=== PATIENT | female | born 2005 | race Caucasian/White ===

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

== ENCOUNTER 2024-01-02 10:02 | Emergency (ER) | payer BC, OTHER ==
[2024-01-02 10:05] VITALS: TEMP 98.8
[2024-01-02 10:37] LABS: Basophils % (A) 0 %; Eosinophils % (A) 0 %; HCT 34.2 % (34.0-46.0); HGB 11.6 gm/dL (11.4-16.0); Lymphocytes # (A) 0.8 k/uL (1.0-4.8); Lymphocytes % (A) 6 %; MCH 28.8 pg (25.0-35.0); MCV 84.7 fL (80.0-100.0); Mean Platelet Volume 7.8; Monocytes % (A) 8 %; Neutrophils # (A) 10.2 k/uL (1.3-7.7); Neutrophils % (A) 83 %; Platelet Count 171 k/uL (150-450); RBC 4.04 m/uL (3.80-5.40); RDW 13.8 % (11.5-15.5); WBC 12.2 k/uL (4.0-11.0)
[2024-01-02] MEDS: SODIUM CHLORIDE 0.9% 1,000 ML IV STA ×2 (10:47→11:39)
[2024-01-02] MEDS: ONDANSETRON 4 MG/2 ML VIAL IVP STA ×2 (10:48→16:21)
[2024-01-02] MEDS: KETOROLAC 15 MG/ML 1 ML VIAL IVP STA (10:49)
[2024-01-02] MEDS: MORPHINE SULFATE 4 MG/ML SYRINGE IVP STA ×2 (10:50→16:22)
[2024-01-02 10:51] VITALS: RESP 18
[2024-01-02 11:13] LABS: ALT 48 U/L (4-34); AST 25 U/L (14-36); African American GFR (CKD) >90 (>60 ml/min/1.73 sqM); Albumin 3.5 g/dL (3.5-5.0); Alkaline Phosphatase 61 U/L (38-126); Amylase <30 U/L (30-110); Anion Gap 10 mmol/L; Blood Urea Nitrogen 4 mg/dL (7-17); Calcium 8.6 mg/dL (8.4-10.2); Carbon Dioxide 22 mmol/L (22-30); Chloride 96 mmol/L (98-107); Glucose 111 mg/dL (74-99); Lipase 22 U/L (23-300); Non-African American GFR(CKD) >90 (>60 ml/min/1.73 sqM); Potassium 3.1 mmol/L (3.5-5.1); Sodium 128 mmol/L (137-145); Total Bilirubin 0.5 mg/dL (0.2-1.3); Total Protein 6.1 g/dL (6.3-8.2)
--- NOTE | 2024-01-02 11:17 | US ---
EXAMINATION TYPE: US gallbladder DATE OF EXAM: 01/02/2024 COMPARISON: NONE CLINICAL INDICATION: Female, 18 years old with history of RUQ pain; Pain. TECHNIQUE: Grayscale and color Doppler imaging of the right upper quadrant was performed. 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 Evidence for sonographic Kent's sign:. neg CBD: wnl Right Kidney: Appears echogenic in appearance IMPRESSION: No evidence for acute process. [facility], , 01/02/2024 11:15 AM
[2024-01-02] MEDS: POTASSIUM CHLORIDE ER 20 MEQ TAB.ER PO STA (11:39)
--- NOTE | 2024-01-02 11:48 | ED ---
Abdominal Pain HPI - General Chief Complaint: Abdominal Pain Stated Complaint: Abd pain Time Seen by Provider: 01/02/24 10:06 Source: patient, RN notes reviewed Mode of arrival: ambulatory Limitations: no limitations - History of Present Illness Initial Comments: This is a 18-year-old female who presents to the emergency department for abdominal pain. Patient reports right upper quadrant pain for the last 2 to 3 days with associated nausea and vomiting. Also reports constipation. Denies any history of similar pain in the past. Unsure if she has had any fevers or chills. Denies any sick contacts. MD Complaint: abdominal pain - Related Data Previous Rx's Medication Instructions Recorded Azithromycin [Zithromax] 0 mg PO DIRECTED #36 ml 10/23/14 Cefpodoxime Proxetil [Vantin] 200 mg PO Q12HR 14 Days #28 tab 01/02/24 Ondansetron Odt [Zofran Odt] 4 mg PO Q8HR PRN #15 tab 01/02/24 Cefpodoxime Proxetil [Vantin] 200 mg PO Q12HR 14 Days #28 tab 01/03/24 Allergies Allergy/AdvReac Type Severity Reaction Status Date / Time banana pepper AdvReac Rash/Hives Uncoded 01/02/24 10:04 beets AdvReac Rash/Hives Uncoded 01/02/24 10:04 Review of Systems ROS Statement: Those systems with pertinent positive or pertinent negative responses have been documented in the HPI. ROS Other: All systems not noted in ROS Statement are negative. Past Medical History Past Medical History: No Reported History History of Any Multi-Drug Resistant Organisms: None Reported Past Surgical History: No Surgical Hx Reported Past Psychological History: No Psychological Hx Reported, Depression Smoking Status: Vaper Past Alcohol Use History: None Reported Past Drug Use History: Marijuana General Exam Limitations: no limitations General appearance: alert, in no apparent distress Head exam: Present: atraumatic, normocephalic, normal inspection Respiratory exam: Present: normal lung sounds bilaterally. Absent: respiratory distress, wheezes, rales, rhonchi, stridor Cardiovascular Exam: Present: regular rate, normal rhythm, normal heart sounds. Absent: systolic murmur, diastolic murmur, rubs, gallop, clicks GI/Abdominal exam: Present: soft, tenderness (RUQ), normal bowel sounds. Absent: distended Neurological exam: Present: alert, oriented X3, CN II-XII intact Psychiatric exam: Present: normal affect, normal mood Skin exam: Present: warm, dry, intact, normal color. Absent: rash Course Vital Signs 01/02/24 01/02/24 01/02/24 10:02 10:51 11:28 Temperature 98.8 F Pulse Rate 125 H 115 H 116 H Respiratory 20 18 18 Rate Blood Pressure 130/72 114/76 121/68 O2 Sat by Pulse 99 97 96 Oximetry 01/02/24 16:17 Temperature Pulse Rate 105 H Respiratory 18 Rate Blood Pressure 116/70 O2 Sat by Pulse 95 Oximetry Medical Decision Making - Medical Decision Making This is a 18 year old female who presents to the emergency department for abdominal pain. Was pt. sent in by a medical professional or institution? @ -No Did you speak to anyone other than the patient for history? @ -No Did you review nursing and triage notes? @ -Yes, and I agree, it is accurate with regards to the patient's symptoms. Were old charts reviewed? @ -No Differential Diagnosis? @ -Differential Abdominal Pain Women: Appendicitis, Cholecystitis, diverticulosis, ischemic bowel, pancreatitis, hepatitis, UTI, gastroenteritis, AAA, incarcerated hernia, bowel obstruction, constipation, inflammatory bowel, hepatitis, peptic ulcer disease, splenic infarction, perforated viscus, vulvitis, ovarian torsion, PID, kidney stone, placenta abruption, this is not meant to be an all-inclusive list EKG interpreted by me (3pts min.)? @ -Not obtained X-rays interpreted by me (1pt min.)? @ -Not obtained CT interpreted by me (1pt min.)? @ -Not obtained U/S interpreted by me (1pt. min.)? @ -Gallbladder ultrasound obtained. My interpretation identifies no evidence of cholelithiasis. Obstetrics ultrasound obtained. My interpretation identifies a single live IUP. What testing was considered but not performed? (CT, X-rays, U/S, labs)? Why? @ -None What meds were considered but not given? Why? @ -None Did you discuss the management of the patient with other professionals? @ -Yes, Dr. Guo. He advised giving the patient a dose of IV antibiotics in the emergency department having her try oral antibiotics on an outpatient basis first. Did you reconcile home meds? @ -No Was smoking cessation discussed for >3mins.? @ -I discussed smoking cessation for greater than 3 minutes. The risk of smoking were discussed with the patient including but not limited to risks of cancer, stroke, coronary artery disease and COPD. Also discussed with patient were multiple methods of quitting smoking. Lastly we discussed the financial cost of smoking. Was critical care preformed (if so, how long)? @ -No Were there social determinants of health that impacted care today? How? (Homelessness, low income, unemployed, alcoholism, drug addiction, transportation, low edu. Level, literacy, decrease access to med. care, fdc, rehab)? @ -No Was there de-escalation of care discussed even if they declined? (Discuss DNR or withdrawal of care, Hospice)? @ -No What co-morbidities impacted this encounter? (DM, HTN, Smoking, COPD, CAD, Cancer, CVA, Hep., AIDS, mental health diagnosis, sleep apnea, morbid obesity)? @ -Smoking Was patient admitted / discharged? @ -Discharged. We started with lab work and an ultrasound of the gallbladder. Lab work demonstrates leukocytosis with a white blood cell count of 12.2 as well as hyponatremia with a sodium of 128 and hypokalemia with a potassium of 3.1. 2 L bolus of IV fluids administered as well as 40 mEq of K-Dur. Gallbladder ultrasound reveals no acute process. Patient's test then came back positive. She had been before hand. States that she has an 8-month-old at home. h[place] was [id number]. She denies any bleeding. We then proceeded with an obstetrics ultrasound demonstrating a single live intrauterine measuring approximately 12 we eks. Urinalysis then returned positive for infection as well. Urine sent for culture. Her symptoms were well-controlled in the emergency department and she was tolerating oral intake. There was concern that with the pain in her right flank and right upper quadrant she could be developing pyelonephritis. Given that she is also with the hyponatremia, case discussed with Dr. Guo regarding potential admission. He advised that we can start with outpatient management first. Repeat sodium obtained and was improved at 130. She was given 1 g of Rocephin in the emergency department. Prescription for 2-week course of cefpodoxime provided for further management. Patient discharged home in stable condition with very strict return parameters. Information for [facility] follow-up provided as well. Patient discharged home in stable condition. Case discussed with ED attending Dr. Valadez. Return precautions reviewed in depth, the patient is instructed to return to the emergency department with any new, worsening, or concerning symptoms. Patient verbalized understanding. Undiagnosed new problem with uncertain prognosis? @ -None Drug Therapy requiring intensive monitoring for toxicity (Heparin, Nitro, Insulin, Cardizem)? @ -None Were any procedures done? @ -None Diagnosis/symptom? @ -UTI, at 12 weeks gestation, hyponatremia Acute, or Chronic, or Acute on Chronic? @ -Acute Uncomplicated (without systemic symptoms) or Complicated (systemic symptoms)? @ -Complicated Side effects of treatment? @ -None Exacerbation, Progression, or Severe Exacerbation] @ -Not applicable Poses a threat to life or bodily function? @ -This will depend on how her symptoms and infection progress. - Lab Data Result diagrams: 01/02/24 10:29 01/02/24 14:32 Lab Results 01/02/24 01/02/24 01/02/24 Range/Units 10:27 10:29 10:29 WBC 12.2 H (4.0-11.0) k/uL RBC 4.04 (3.80-5.40) m/uL Hgb 11.6 (11.4-16.0) gm/dL Hct 34.2 (34.0-46.0) % MCV 84.7 (80.0-100.0) fL MCH 28.8 (25.0-35.0) pg MCHC 34.0 (31.0-37.0) g/dL RDW 13.8 (11.5-15.5) % Plt Count 171 (150-450) k/uL MPV 7.8 Neutrophils % 83 % Lymphocytes % 6 % Monocytes % 8 % Eosinophils % 0 % Basophils % 0 % Neutrophils # 10.2 H (1.3-7.7) k/uL Lymphocytes # 0.8 L (1.0-4.8) k/uL Monocytes # 1.0 (0-1.0) k/uL Eosinophils # 0.0 (0-0.7) k/uL Basophils # 0.0 (0-0.2) k/uL Sodium 128 L (137-145) mmol/L Potassium 3.1 L (3.5-5.1) mmol/L Chloride 96 L (98-107) mmol/L Carbon Dioxide 22 (22-30) mmol/L Anion Gap 10 mmol/L BUN 4 L (7-17) mg/dL Creatinine 0.62 (0.52-1.04) mg/dL Est GFR (CKD-EPI)AfAm >90 (>60 ml/min/1.73 sqM) Est GFR (CKD-EPI)NonAf >90 (>60 ml/min/1.73 sqM) Glucose 111 H (74-99) mg/dL Plasma Lactic Acid [place] (0.7-2.0) mmol/L Calcium 8.6 (8.4-10.2) mg/dL Total Bilirubin 0.5 (0.2-1.3) mg/dL AST 25 (14-36) U/L ALT 48 H (4-34) U/L Alkaline Phosphatase 61 (38-126) U/L Total Protein 6.1 L (6.3-8.2) g/dL Albumin 3.5 (3.5-5.0) g/dL Amylase <30 L (30-110) U/L Lipase 22 L (23-300) U/L HCG, Qual Detected HCG, Quant mIU/mL Urine Color Urine Appearance (Clear) Urine pH (5.0-8.0) Ur Specific [place] (1.001-1.035) Urine Protein (Negative) Urine Glucose (UA) (Negative) Urine Ketones (Negative) Urine Blood (Negative) Urine Nitrite (Negative) Urine Bilirubin (Negative) Urine Urobilinogen (<2.0) mg/dL Ur Leukocyte Esterase (Negative) Urine RBC (0-5) /hpf Urine WBC (0-5) /hpf Ur Squamous Epith Cells (0-4) /hpf Urine Bacteria (None) /hpf Urine Mucus (None) /hpf 01/02/24 01/02/24 01/02/24 Range/Units 10:29 11:27 12:31 WBC (4.0-11.0) k/uL RBC (3.80-5.40) m/uL Hgb (11.4-16.0) gm/dL Hct (34.0-46.0) % MCV (80.0-100.0) fL MCH (25.0-35.0) pg MCHC (31.0-37.0) g/dL RDW (11.5-15.5) % Plt Count (150-450) k/uL MPV Neutrophils % % Lymphocytes % % Monocytes % % Eosinophils % % Basophils % % Neutrophils # (1.3-7.7) k/uL Lymphocytes # (1.0-4.8) k/uL Monocytes # (0-1.0) k/uL Eosinophils # (0-0.7) k/uL Basophils # (0-0.2) k/uL Sodium (137-145) mmol/L Potassium (3.5-5.1) mmol/L Chloride (98-107) mmol/L Carbon Dioxide (22-30) mmol/L Anion Gap mmol/L BUN (7-17) mg/dL Creatinine (0.52-1.04) mg/dL Est GFR (CKD-EPI)AfAm (>60 ml/min/1.73 sqM) Est GFR (CKD-EPI)NonAf (>60 ml/min/1.73 sqM) Glucose (74-99) mg/dL Plasma Lactic Acid [place] 1.2 (0.7-2.0) mmol/L Calcium (8.4-10.2) mg/dL Total Bilirubin (0.2-1.3) mg/dL AST (14-36) U/L ALT (4-34) U/L Alkaline Phosphatase (38-126) U/L Total Protein (6.3-8.2) g/dL Albumin (3.5-5.0) g/dL Amylase (30-110) U/L Lipase (23-300) U/L HCG, Qual HCG, Quant 19511.6 mIU/mL Urine Color Colorless Urine Appearance Clear (Clear) Urine pH 6.5 (5.0-8.0) Ur Specific [place] 1.007 (1.001-1.035) Urine Protein 1+ H (Negative) Urine Glucose (UA) Negative (Negative) Urine Ketones 3+ H (Negative) Urine Blood Small H (Negative) Urine Nitrite Positive H (Negative) Urine Bilirubin Negative (Negative) Urine Urobilinogen <2.0 (<2.0) mg/dL Ur Leukocyte Esterase Moderate H (Negative) Urine RBC 3 (0-5) /hpf Urine WBC 21 H (0-5) /hpf Ur Squamous Epith Cells 3 (0-4) /hpf Urine Bacteria Many H (None) /hpf Urine Mucus Rare H (None) /hpf 01/02/24 Range/Units 14:32 WBC (4.0-11.0) k/uL RBC (3.80-5.40) m/uL Hgb (11.4-16.0) gm/dL Hct (34.0-46.0) % MCV (80.0-100.0) fL MCH (25.0-35.0) pg MCHC (31.0-37.0) g/dL RDW (11.5-15.5) % Plt Count (150-450) k/uL MPV Neutrophils % % Lymphocytes % % Monocytes % % Eosinophils % % Basophils % % Neutrophils # (1.3-7.7) k/uL Lymphocytes # (1.0-4.8) k/uL Monocytes # (0-1.0) k/uL Eosinophils # (0-0.7) k/uL Basophils # (0-0.2) k/uL Sodium 130 L (137-145) mmol/L Potassium 3.0 L (3.5-5.1) mmol/L Chloride 103 (98-107) mmol/L Carbon Dioxide 19 L (22-30) mmol/L Anion Gap 8 mmol/L BUN 5 L (7-17) mg/dL Creatinine 0.63 (0.52-1.04) mg/dL Est GFR (CKD-EPI)AfAm >90 (>60 ml/min/1.73 sqM) Est GFR (CKD-EPI)NonAf >90 (>60 ml/min/1.73 sqM) Glucose 104 H (74-99) mg/dL Plasma Lactic Acid [place] (0.7-2.0) mmol/L Calcium 7.4 L (8.4-10.2) mg/dL Total Bilirubin (0.2-1.3) mg/dL AST (14-36) U/L ALT (4-34) U/L Alkaline Phosphatase (38-126) U/L Total Protein (6.3-8.2) g/dL Albumin (3.5-5.0) g/dL Amylase (30-110) U/L Lipase (23-300) U/L HCG, Qual HCG, Quant mIU/mL Urine Color Urine Appearance (Clear) Urine pH (5.0-8.0) Ur Specific [place] (1.001-1.035) Urine Protein (Negative) Urine Glucose (UA) (Negative) Urine Ketones (Negative) Urine Blood (Negative) Urine Nitrite (Negative) Urine Bilirubin (Negative) Urine Urobilinogen (<2.0) mg/dL Ur Leukocyte Esterase (Negative) Urine RBC (0-5) /hpf Urine WBC (0-5) /hpf Ur Squamous Epith Cells (0-4) /hpf Urine Bacteria (None) /hpf Urine Mucus (None) /hpf - Radiology Data Radiology results: report reviewed, image reviewed Disposition Clinical Impression: UTI (urinary tract infection), with 12 completed weeks gestation, Hyponatremia, Nicotine dependence Disposition: HOME SELF-CARE Condition: Fair Instructions (If sedation given, give patient instructions): Hyponatremia (ED), Urinary Tract Infection in (ED) Additional Instructions: Return to the emergency department with any new, worsening, or concerning symptoms. Take the antibiotic as prescribed for 14 days. Take the Zofran up to every 8 hours as needed for nausea and vomiting. Follow up with your primary care provider in 1-2 days. If you would like to discuss options with the , [facility]pl[facility] in [facility] is probably the closest one that can help with potential termination. The [facility] in [place] provides predetermination counseling and may help you discuss options, however they do not actually perform any procedures or prescribe medications to help with termination. If you wish to continue with the , you can follow-up with [facility] locally as listed below. Prescriptions: Cefpodoxime Proxetil [Vantin] 200 mg PO Q12HR 14 Days #28 tab Cefpodoxime Proxetil [Vantin] 200 mg PO Q12HR 14 Days #28 tab Ondansetron Odt [Zofran Odt] 4 mg PO Q8HR PRN #15 tab PRN Reason: Nausea And Vomiting Is patient prescribed a controlled substance at d/c from ED?: No Referrals: Saud Javier MD [Primary Care Provider] - 1-2 days Devi Melo DO [Doctor of Osteopathic Medicine] - 1-2 days Time of Disposition: 15:06
[2024-01-02 12:48] LABS: Appearance,Urine Clear (Clear); Bacteria,Urine Many /hpf; Bilirubin,Urine Negative (Negative); Blood,Urine Small (Negative); Color,Urine Colorless; Glucose,Urine (UA) Negative (Negative); Ketones,Urine 3+ (Negative); Leukocyte Esterase,Urine Moderate (Negative); Mucus,Urine Rare /hpf; Nitrite,Urine Positive (Negative); PH, Urine 6.5 (5.0-8.0); Protein,Urine 1+ (Negative); RBC,Urine 3 /hpf (0-5); Specific Gravity,Urine 1.007 (1.001-1.035); Squamous Epithelial Cell,Urine 3 /hpf (0-4); Urobilinogen,Urine <2.0 mg/dL (<2.0); WBC,Urine 21 /hpf (0-5)
--- NOTE | 2024-01-02 13:38 | US ---
EXAMINATION TYPE: Transabdominal DATE OF EXAM: 01/02/2024 12:57 PM COMPARISON: NONE CLINICAL INDICATION: Female, 18 years old with history of Abdominal pain in ; Right sided pa in / cramping TECHNIQUE: Transabdominal (TA) with grayscale and color Doppler imaging including first trimester pre gnancy. FINDINGS: EXAM MEASUREMENTS: GESTATIONAL AGE / DATING Physician Established: Not yet established ( weeks/ days) EDC: Dates by LMP: LMP unknown ( weeks/ days) EDC: Dates by First Scan: No previous this is first scan ( weeks/ days) EDC: Dates by Current Scan for: (12 weeks/3 days) EDC: 07/13/2024 MATERNAL ANATOMY Uterus: 11.2 x 10.2 x 9.7 cm Right Ovary: 2.3 x 1.7 x 4.0 cm Left Ovary: 3.9 x 1.2 x 1.6 cm Post CDS / Adnexa: WNL Presence of free fluid: No Presence of corpus luteal cyst: No Presence of subchorionic bleed: No GESTATION / SURVEY CRL: 5.91 (12 weeks/3 days) MSD: NA ( weeks/ days) Yolk Sac (normal less than 6mm): Not seen Heart Rate: 185 bpm Rhythm: Normal IUP: Viable IUP Nuchal Translucency 10-14wks (normal less than 3mm): Not able to obtain Age Appropriate Anatomy Cord Insertion: NA Limbs: Visualized Calvarium: Visualized Date of LMP: Unknown - AUB 8 months Beta HcG (if available): [phone] IMPRESSION: Single live intrauterine with calculated ultrasound age of 12 weeks 3 days by crown rump le ngth with an estimated date of delivery of 07/13/2024 [facility], , 01/02/2024 1:36 PM
[2024-01-02] MEDS: cefTRIAXone IN SWFI 1,000 MG/10 ML SYRINGE IVP STA (14:19)
[2024-01-02 14:55] LABS: African American GFR (CKD) >90 (>60 ml/min/1.73 sqM); Anion Gap 8 mmol/L; Blood Urea Nitrogen 5 mg/dL (7-17); Carbon Dioxide 19 mmol/L (22-30); Chloride 103 mmol/L (98-107); Glucose 104 mg/dL (74-99); Sodium 130 mmol/L (137-145)
[2024-01-02 14:56] LABS: Calcium 7.4 mg/dL (8.4-10.2); Non-African American GFR(CKD) >90 (>60 ml/min/1.73 sqM)
[2024-01-02 16:18] VITALS: BP 116/70; PULSE 105
[2024-01-02] MEDS: ACETAMINOPHEN TAB 500 MG TAB PO STA (16:21)
== END 2024-01-02 16:32 | disposition home or self-care (01) ==
LOC: EC 10:02
DX: O23.41 Unspecified infection of urinary tract in pregnancy, first trimester (principal); N39.0 Urinary tract infection, site not specified; O99.281 Endocrine, nutritional and metabolic diseases complicating pregnancy, first trimester; E87.1 Hypo-osmolality and hyponatremia; O99.331 Smoking (tobacco) complicating pregnancy, first trimester; F17.290 Nicotine dependence, other tobacco product, uncomplicated; Z91.018 Allergy to other foods; Z3A.12 12 weeks gestation of pregnancy
CPT/HCPCS: 36415; 80053; 80048; 82150; 83605; 83690; 85025; 81001; 84703; 84702; 87040; 87086; 87077; 87186; 76801; 76705; 99284; 96374; 96375 ×2; 96376; 96361; J2270; J2405; J0696; J1885

== ENCOUNTER 2024-01-12 08:39 | Emergency (ER) | payer BC, OTHER ==
[2024-01-12 09:18] VITALS: RESP 18
--- NOTE | 2024-01-12 10:29 | ED ---
Fall HPI - General Chief Complaint: Fall Stated Complaint: Fall/head lac/12wks Time Seen by Provider: 01/12/24 10:29 Source: patient, RN notes reviewed Mode of arrival: ambulatory Limitations: no limitations - History of Present Illness Initial Comments: 18-year-old female approximately 12 weeks gestation presenting to the ER with a chief complaint of a fall. Patient states she was attempting to carry laundry downstairs when she accidentally missed a step causing her to fall forward. She does state that she hit her head and has a laceration just lateral to her right eyebrow. Tetanus is up-to-date. Patient states since fall she has been endorsing lower abdominal cramping. She denies any vaginal bleeding or discharge. Patient states she is also feeling mildly nauseous but states she was feeling like this prior to the fall due to her . She denies any other injuries from fall. Denies any constipation/diarrhea, urinary complaints, peripheral edema, chest pain or shortness of breath. No fevers. - Related Data Previous Rx's Medication Instructions Recorded Ondansetron Odt [Zofran Odt] 4 mg PO Q8HR PRN #10 tab 01/12/24 Allergies Allergy/AdvReac Type Severity Reaction Status Date / Time beet Allergy Rash/Hives Verified 01/12/24 12:39 banana pepper Allergy Rash/Hives Uncoded 01/12/24 12:39 Review of Systems ROS Statement: Those systems with pertinent positive or pertinent negative responses have been documented in the HPI. ROS Other: All systems not noted in ROS Statement are negative. Past Medical History Past Medical History: No Reported History History of Any Multi-Drug Resistant Organisms: None Reported Past Surgical History: No Surgical Hx Reported Past Psychological History: No Psychological Hx Reported, Depression Smoking Status: Vaper Past Alcohol Use History: None Reported Past Drug Use History: Marijuana General Exam Limitations: no limitations General appearance: alert, in no apparent distress Head exam: Present: normocephalic, other (1 cm superficial laceration to right lateral eyebrow. No active bleeding.) Eye exam: Present: normal appearance, PERRL, EOMI. Absent: scleral icterus, conjunctival injection, periorbital swelling Pupils: Present: normal accommodation ENT exam: Present: normal exam, normal oropharynx, mucous membranes moist Neck exam: Present: normal inspection. Absent: tenderness, meningismus, lymphadenopathy Respiratory exam: Present: normal lung sounds bilaterally. Absent: respiratory distress, wheezes, rales, rhonchi, stridor Cardiovascular Exam: Present: regular rate, normal rhythm, normal heart sounds. Absent: systolic murmur, diastolic murmur, rubs, gallop, clicks GI/Abdominal exam: Present: soft, tenderness (Suprapubic), normal bowel sounds Extremities exam: Present: normal inspection, full ROM, normal capillary refill. Absent: tenderness, pedal edema, joint swelling, calf tenderness Neurological exam: Present: alert, oriented X3, CN II-XII intact Skin exam: Present: warm, dry, intact, normal color. Absent: rash Course Vital Signs 01/12/24 01/12/24 09:12 14:56 Temperature 97.7 F 97.6 F Pulse Rate 84 91 Respiratory 18 18 Rate Blood Pressure 122/75 104/53 O2 Sat by Pulse 99 100 Oximetry Procedures - Laceration Laceration #1 Consent Obtained: verbal consent Indication: laceration Site: face Size (cm): 1 Description: linear Depth: simple, single layer Pre-repair: wound explored, irrigated extensively, deep structures intact Type of Sutures: other (dermal glue) Patient Tolerated Procedure: well Medical Decision Making - Medical Decision Making Was pt. sent in by a medical professional or institution ([facility], [employer], urgent care, hospital, or shelter...) When possible be specific @ -No Did you speak to anyone other than the patient for history (EMS, parent, family, police, friend...)? What history was obtained from this source @ -No Did you review nursing and triage notes (agree or disagree)? Why? @ -I reviewed and agree with nursing and triage notes Were old charts reviewed (outside hosp., previous admission, EMS record, old EKG, old radiological studies, urgent care reports/EKG's, shelter records)? Report findings @ -No old charts were reviewed Differential Diagnosis (chest pain, altered mental status, abdominal pain women, abdominal pain men, vaginal bleeding, weakness, fever, dyspnea, syncope, headache, dizziness, GI bleed, back pain, seizure, CVA, palpatations, mental health, musculoskeletal)? @ -Fracture, dislocation, contusion, hematoma, intracranial hemorrhage, concussion, abrasion, laceration this list does not like to be all-inclusive EKG interpreted by me (3pts min.). @ -None X-rays interpreted by me (1pt min.). @ -None done CT interpreted by me (1pt min.). @ -None done U/S interpreted by me (1pt. min.). @ - ultrasound showing a single viable IUP. Heart rate 147. What testing was considered but not performed or refused? (CT, X-rays, U/S, labs)? Why? @ -CT brain was considered but not performed. GCS of 15. [place] CT head injury/trauma rule negative. Patient is also . Shared decision making utilized. As no concerning signs or symptoms at this time CT will be deferred. Patient is agreeable to this. What meds were considered but not given or refused? Why? @ -None Did you discuss the management of the patient with other professionals (professionals i.e. , PA, [employer], lab, RT, psych nurse, social media campaign manager, computational mathematician, teacher, business development officer, bilingual patient support caseworker)? Give summary @ -No Was smoking cessation discussed for >3mins.? @ -No Was critical care preformed (if so, how long)? @ -No Were there social determinants of health that impacted care today? How? (Homelessness, low income, unemployed, alcoholism, drug addiction, transportation, low edu. Level, literacy, decrease access to med. care, long-term, rehab)? @ -No Was there de-escalation of care discussed even if they declined (Discuss DNR or withdrawal of care, Hospice)? DNR status @ -No What co-morbidities impacted this encounter? (DM, HTN, Smoking, COPD, CAD, Cancer, CVA, ARF, Chemo, Hep., AIDS, mental health diagnosis, sleep apnea, morbid obesity)? @ - Was patient admitted / discharged? Hospital course, mention meds given and route, prescriptions, significant lab abnormalities, going to OR and other pertinent info. @ -Discharge. 18-year-old female presented to the ER with a chief complaint of a fall. History and physical exam completed. Vitals within normal limits. Patient in no signs of acute distress. There is a 1 cm superficial laceration lateral to right eyebrow. No active bleeding. Wound was closed with dermal glue, see note above. Patient also complaining of lower abdominal pain no vaginal bleeding or discharge. There is pain to suprapubic region and normal bowel sounds with no rebound or guarding. Due to patient's status, ultrasound and laboratory studies will be obtained. Ultrasound showing single IUP heart rate 147. Serum hCG 73,093.7. Urinalysis showing 1+ ketones concerning of dehydration. Patient received 1 L IV fluids and Zofran for symptom control in the ER. Blood type O+. Upon reevaluation, patient sleeping in exam room no signs of acute distress. Results discussed with patient, all questions answered. Patient stable for discharge at this time. Patient discharged with Zofran. Strict return parameters discussed. Patient discharged in stable condition with follow-up to HEAD RESIDENT. Patient verbally expressed understanding and agreement with care plan. Case discussed with ED attending, Dr. Valadez. Undiagnosed new problem with uncertain prognosis? @ -No Drug Therapy requiring intensive monitoring for toxicity (Heparin, Nitro, Insu taylor, Cardizem)? @ -No Were any procedures done? @ -Yes, laceration repair Diagnosis/symptom? @ -Abdominal pain in /fall/laceration Acute, or Chronic, or Acute on Chronic? @ -Acute Uncomplicated (without systemic symptoms) or Complicated (systemic symptoms)? @ -Uncomplicated Side effects of treatment? @ -No Exacerbation, Progression, or Severe Exacerbation? @ -No Poses a threat to life or bodily function? How? (Chest pain, [place], [place], pneumonia, PE, COPD, DKA, ARF, appy, cholecystitis, CVA, Diverticulitis, Homicidal, Suicidal, threat to staff... and all critical care pts) @ -No - Lab Data Result diagrams: 01/12/24 10:42 01/12/24 10:42 Lab Results 01/12/24 01/12/24 01/12/24 Range/Units 10:42 10:42 10:42 WBC 10.8 (4.0-11.0) k/uL RBC 4.15 (3.80-5.40) m/uL Hgb 11.8 (11.4-16.0) gm/dL Hct 34.7 (34.0-46.0) % MCV 83.6 (80.0-100.0) fL MCH 28.4 (25.0-35.0) pg MCHC 34.0 (31.0-37.0) g/dL RDW 14.5 (11.5-15.5) % Plt Count 376 D (150-450) k/uL MPV 7.1 Neutrophils % 75 % Lymphocytes % 20 % Monocytes % 3 % Eosinophils % 1 % Basophils % 0 % Neutrophils # 8.1 H (1.3-7.7) k/uL Lymphocytes # 2.2 (1.0-4.8) k/uL Monocytes # 0.4 (0-1.0) k/uL Eosinophils # 0.1 (0-0.7) k/uL Basophils # 0.0 (0-0.2) k/uL Sodium 135 L (137-145) mmol/L Potassium 4.1 (3.5-5.1) mmol/L Chloride 104 (98-107) mmol/L Carbon Dioxide 25 (22-30) mmol/L Anion Gap 6 mmol/L BUN 7 (7-17) mg/dL Creatinine 0.52 (0.52-1.04) mg/dL Est GFR (CKD-EPI)AfAm >90 (>60 ml/min/1.73 sqM) Est GFR (CKD-EPI)NonAf >90 (>60 ml/min/1.73 sqM) Glucose 83 (74-99) mg/dL Calcium 9.3 (8.4-10.2) mg/dL Total Bilirubin 0.3 (0.2-1.3) mg/dL AST 40 H (14-36) U/L ALT 81 H (4-34) U/L Alkaline Phosphatase 78 (38-126) U/L Total Protein 6.7 (6.3-8.2) g/dL Albumin 3.8 (3.5-5.0) g/dL HCG, Quant 24730.7 mIU/mL Urine Color Light Yellow Urine Appearance Clear (Clear) Urine pH 8.5 H (5.0-8.0) Ur Specific [place] 1.015 (1.001-1.035) Urine Protein Negative (Negative) Urine Glucose (UA) Negative (Negative) Urine Ketones 1+ H (Negative) Urine Blood Negative (Negative) Urine Nitrite Negative (Negative) Urine Bilirubin Negative (Negative) Urine Urobilinogen <2.0 (<2.0) mg/dL Ur Leukocyte Esterase Negative (Negative) Blood Type Blood Type Recheck Bld Type Recheck Status 10/25/24 Range/Units 10:42 WBC (4.0-11.0) k/uL RBC (3.80-5.40) m/uL Hgb (11.4-16.0) gm/dL Hct (34.0-46.0) % MCV (80.0-100.0) fL MCH (25.0-35.0) pg MCHC (31.0-37.0) g/dL RDW (11.5-15.5) % Plt Count (150-450) k/uL MPV Neutrophils % % Lymphocytes % % Monocytes % % Eosinophils % % Basophils % % Neutrophils # (1.3-7.7) k/uL Lymphocytes # (1.0-4.8) k/uL Monocytes # (0-1.0) k/uL Eosinophils # (0-0.7) k/uL Basophils # (0-0.2) k/uL Sodium (137-145) mmol/L Potassium (3.5-5.1) mmol/L Chloride (98-107) mmol/L Carbon Dioxide (22-30) mmol/L Anion Gap mmol/L BUN (7-17) mg/dL Creatinine (0.52-1.04) mg/dL Est GFR (CKD-EPI)AfAm (>60 ml/min/1.73 sqM) Est GFR (CKD-EPI)NonAf (>60 ml/min/1.73 sqM) Glucose (74-99) mg/dL Calcium (8.4-10.2) mg/dL Total Bilirubin (0.2-1.3) mg/dL AST (14-36) U/L ALT (4-34) U/L Alkaline Phosphatase (38-126) U/L Total Protein (6.3-8.2) g/dL Albumin (3.5-5.0) g/dL HCG, Quant mIU/mL Urine Color Urine Appearance (Clear) Urine pH (5.0-8.0) Ur Specific [place] (1.001-1.035) Urine Protein (Negative) Urine Glucose (UA) (Negative) Urine Ketones (Negative) Urine Blood (Negative) Urine Nitrite (Negative) Urine Bilirubin (Negative) Urine Urobilinogen (<2.0) mg/dL Ur Leukocyte Esterase (Negative) Blood Type O Positive Blood Type Recheck No Previous Record Bld Type Recheck Status [facility] ONLY - Radiology Data Radiology results: report reviewed, image reviewed Disposition Clinical Impression: Fall, Laceration, Disposition: HOME SELF-CARE Condition: Stable Instructions (If sedation given, give patient instructions): Fall Prevention (ED) Additional Instructions: Follow-up with HEAD RESIDENT as scheduled. Return to the ER for any new or worsening concerns. Prescriptions: Ondansetron Odt [Zofran Odt] 4 mg PO Q8HR PRN #10 tab PRN Reason: Nausea Is patient prescribed a controlled substance at d/c from ED?: No Referrals: Saud Javier MD [Primary Care Provider] - 1-2 days Michele Machado MD [STAFF PHYSICIAN] - 1-2 days Time of Disposition: 14:14
[2024-01-12] MEDS: SODIUM CHLORIDE 0.9% 1,000 ML IV STA (11:04)
[2024-01-12] MEDS: TOPICAL SKIN ADHESIVE 1 EACH AMP TOPICAL ONE (11:05)
[2024-01-12] MEDS: ONDANSETRON 4 MG/2 ML VIAL IVP STA (11:05)
[2024-01-12 11:19] LABS: Basophils % (A) 0 %; Eosinophils # (A) 0.1 k/uL (0-0.7); Eosinophils % (A) 1 %; HCT 34.7 % (34.0-46.0); HGB 11.8 gm/dL (11.4-16.0); Lymphocytes # (A) 2.2 k/uL (1.0-4.8); Lymphocytes % (A) 20 %; MCH 28.4 pg (25.0-35.0); MCV 83.6 fL (80.0-100.0); Mean Platelet Volume 7.1; Monocytes # (A) 0.4 k/uL (0-1.0); Monocytes % (A) 3 %; Neutrophils # (A) 8.1 k/uL (1.3-7.7); Neutrophils % (A) 75 %; RBC 4.15 m/uL (3.80-5.40); RDW 14.5 % (11.5-15.5); WBC 10.8 k/uL (4.0-11.0)
[2024-01-12 11:24] LABS: Platelet Count 376 k/uL (150-450)
--- NOTE | 2024-01-12 11:33 | US ---
EXAMINATION TYPE: US OB limited DATE OF EXAM: 01/12/2024 COMPARISON: US 01/02/2024 CLINICAL INDICATION: Female, 18 years old with history of abd pain after fall; EXAM PERFORMED: Transabdominal (TA) FINDINGS: GESTATIONAL AGE / DATING Physician Established: (13 weeks/6 days) EDC: 07/13/2024 No growth performed on today?s study per ordering physician SURVEY PLACENTA: Anterior PREVIA: No Previa DENICE: 12.0 cm Normal CERVICAL LENGTH (transabdominal: norm > 3.0cm): 3.1 cm HEART RATE: 147 bpm RHYTHM: Normal IMPRESSION: Single viable intrauterine is noted. No evidence for placenta previa. [facility], , 01/12/2024 11:31 AM
[2024-01-12 11:37] LABS: ALT 81 U/L (4-34); AST 40 U/L (14-36); African American GFR (CKD) >90 (>60 ml/min/1.73 sqM); Albumin 3.8 g/dL (3.5-5.0); Alkaline Phosphatase 78 U/L (38-126); Anion Gap 6 mmol/L; Blood Urea Nitrogen 7 mg/dL (7-17); Calcium 9.3 mg/dL (8.4-10.2); Carbon Dioxide 25 mmol/L (22-30); Chloride 104 mmol/L (98-107); Glucose 83 mg/dL (74-99); Non-African American GFR(CKD) >90 (>60 ml/min/1.73 sqM); Potassium 4.1 mmol/L (3.5-5.1); Sodium 135 mmol/L (137-145); Total Bilirubin 0.3 mg/dL (0.2-1.3); Total Protein 6.7 g/dL (6.3-8.2)
[2024-01-12 11:56] LABS: Appearance,Urine Clear (Clear); Bilirubin,Urine Negative (Negative); Blood,Urine Negative (Negative); Color,Urine Light Yellow; Glucose,Urine (UA) Negative (Negative); Ketones,Urine 1+ (Negative); Leukocyte Esterase,Urine Negative (Negative); Nitrite,Urine Negative (Negative); PH, Urine 8.5 (5.0-8.0); Protein,Urine Negative (Negative); Specific Gravity,Urine 1.015 (1.001-1.035); Urobilinogen,Urine <2.0 mg/dL (<2.0)
[2024-01-12 14:20] LABS: HCG,Quantitative Serum 73093.7 mIU/mL
[2024-01-12 14:57] VITALS: BP 104/53; PULSE 91; TEMP 97.6
== END 2024-01-12 15:08 | disposition home or self-care (01) ==
LOC: EC 08:39
CPT/HCPCS: 12011; 36415; 76815; 80053; 81003; 84702; 85025; 86900; 86901; 96361; 96374; 99283